=== PATIENT | female | born 1980 | race Caucasian/White ===

== ENCOUNTER 2017-01-04 14:25 | Outpatient (CLI) | payer OTHER ==
--- NOTE | 2017-01-04 22:16 | MRI Report ---
EXAM: MRI LUMBAR SPINE WITHOUT CONTRAST EXAM DATE: 01/04/2017 04:17 PM. CLINICAL HISTORY: Low back pain. COMPARISON: None. TECHNIQUE: Multiplanar, multisequence T1-weighted and fluid-sensitive sequences of the lumbar spine f rom T12 to S1 without contrast. Other: None. FINDINGS: The images are degraded by motion. There is straightening of the normal lumbar lordosis. There is a mild decrease in the height of the disk with desiccation at L3-L4 and L4-L5. The conus terminates at L1-L2 and is normal. The bone marrow signal intensities are normal. There is a mild degree of dependent edema in the superficial space of the lower back. There are multiple disk bulges or disk osteophyte complexes which will be described in greater detail below. The abdominal aorta is of normal caliber. There is no significant atrophy of the paraspinal musculatu re or psoas musculature. The kidneys are without evidence of hydronephrosis. L1-L2: There is no significant disk bulge, central or foraminal stenosis. The facets are normal. L2-L3: There is no significant disk bulge, central or foraminal stenosis. The facets are normal. L3-L4: There is a broad-based disk bulge with superimposed central extrusion of the disk with annular tear producing a mild central canal stenosis. The facets are normal. There is mild neural foraminal narrowing bilaterally. L4-L5: There is a broad-based disk bulge with annular tear abutting the sac producing a mild central canal stenosis. The facets are normal. There is mild right and left neural foraminal narrowing. L5-S1: There is no significant disk bulge, central or foraminal stenosis. The facets are normal. IMPRESSION: 1. There is a broad-based disk bulge with superimposed central extrusion of the disk at L3-L4 with an nular tear producing a mild central canal stenosis. 2. There is a broad-based disk bulge with annular tear at L4-L5 abutting the sac producing a mild teddy tral canal stenosis. Comment: The following findings are so common in adults without low back pain that while we report th eir presence, they must be interpreted with caution and in the context of the clinical situation. (Re anna Martinez et al, Spine 2001) Prevalence of findings in patients without low back pain: Disk degeneration (any evidence): 92% Disk desiccation/T2 signal loss: 83% Disk height loss: 56% Disk bulge: 64% Disk protrusion: 32% Annular tear/high intensity zone: 38% [facility] Referring Provider Line: [phone] SITE ID: [id number]
== END 2017-01-04 14:26 | disposition home or self-care (01) ==
LOC: DI 14:25
DX: M51.26 Other intervertebral disc displacement, lumbar region (principal); M51.36 Other intervertebral disc degeneration, lumbar region
CPT/HCPCS: 72148

== ENCOUNTER 2020-05-25 23:52 | Emergency (ER) | payer OTHER ==
[2020-05-26 00:27] LABS: BILIRUBIN,URINE NEGATIVE (NEGATIVE); CLARITY,URINE CLEAR (CLEAR); GLUCOSE, URINE (UA) NEGATIVE (NEGATIVE); KETONES,URINE (UA) NEGATIVE (NEGATIVE); LEUKOCYTE ESTERASE, URINE SMALL (NEGATIVE); NITRITE,URINE NEGATIVE (NEGATIVE); OCCULT BLOOD,URINE NEGATIVE (NEGATIVE); PROTEIN,URINE NEGATIVE (NEGATIVE); UROBILINOGEN,URINE 0.2 (NORMAL) E.U./dL (NORMAL)
[2020-05-26 00:28] LABS: HCG UR QUAL NEGATIVE
[2020-05-26 00:32] LABS: BACTERIA,URINE Rare /HPF (None Seen); RBC,URINE None Seen /HPF (0-5); SQUAMOUS EPITHELIAL CELL,UR MANY Squamous (<= Few)
[2020-05-26] MEDS ORDERED: SULFAMETH/TRIMETH DS 800/160 MG TABLET PO STA (00:48)
--- NOTE | 2020-05-26 01:10 | ED Physician Documentation ---
History of Present Illness - Stated complaint Stated Complaint: F - Chief complaint Chief Complaint: UTI - History obtained from History obtained from: Patient - Additonal information Additional information: Patient comes emergency department with chief complaint of back pain, nausea, and suprapubic pain, in addition to frequency. Patient states she has a history of recurrent UTIs previously, and this feels the same. No fevers or chills. Patient states she does not get dysuria anymore. No vaginal symptoms. No other complaints at this time. Review of Systems Ten Systems: 10 systems reviewed and negative Constitutional: reports: Reviewed and negative Eyes: reports: Reviewed and negative Ears: reports: Reviewed and negative Nose: reports: Reviewed and negative Throat: reports: Reviewed and negative Cardiac: reports: Reviewed and negative Respiratory: reports: Reviewed and negative GI: reports: Abdominal Pain, Nausea. denies: Vomiting : reports: Reviewed and negative Skin: reports: Reviewed and negative Musculoskeletal: reports: Reviewed and negative Neurologic: reports: Reviewed and negative Psychiatric: reports: Reviewed and negative Endocrine: reports: Reviewed and negative Immunocompromised: reports: Reviewed and negative PD PAST MEDICAL HISTORY - Past Medical History Cardiovascular: Hypertension Respiratory: None Endocrine/Autoimmune: None GI: GERD : None HEENT: None Psych: Depression, Anxiety, Other Musculoskeletal: Other Derm: None - Past Surgical History Past Surgical History: Yes General: Cholecystectomy 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 - Present Medications Home Medications: Ambulatory Orders Medication Instructions Recorded Confirmed Butalbital/Aspirin/Caffeine 1 cap PO ONCE PRN 08/16/14 06/10/15 [Fiorinal 50-325-40 mg Capsule] Promethazine [Phenergan] 25 mg PO ONCE PRN 08/16/14 06/10/15 Tizanidine HCl [Zanaflex] 4 mg PO BID 08/16/14 06/10/15 Bupropion HCl [Bupropion HCl Sr] 300 mg PO DAILY 06/10/15 06/10/15 Montelukast Sodium [Singulair] 10 mg PO DAILY 06/10/15 06/10/15 Metoprolol Tartrate 100 mg PO BID 06/11/15 06/11/15 Codeine/Butalbital/ASA/Caffein 1 PRN 08/13/15 [Fiorinal-Cod 33-59-543-40 Cap] Sulfamethox/Trimeth 800/160 1 each PO BID #14 tablet 05/26/20 [Bactrim Ds 800/160] - Allergies Allergies/Adverse Reactions: Allergies Allergy/AdvReac Type Severity Reaction Status Date / Time hydrocodone bitartrate * Allergy Itching Verified 05/25/20 23:54 [From [place]] oxycodone HCl * Allergy Hives Verified 05/25/20 23:54 [From Percocet] amoxicillin trihydrate * AdvReac Nausea Verified 05/25/20 23:54 [From Augmentin] potassium clavulanate * AdvReac Nausea Verified 05/25/20 23:54 [From Augmentin] - Social History Does the pt smoke?: No Smoking Status: Never smoker Does the pt drink ETOH?: No Does the pt have substance abuse?: No - Immunizations Immunizations are current?: Yes PD ED PE NORMAL - Vitals Vital signs reviewed: Yes - General General: Alert and oriented X 3, No acute distress - HEENT HEENT: Atraumatic, PERRL, EOMI, Moist mucous membranes - Neck Neck: Supple, no meningeal sign - Cardiac Cardiac: RRR, No murmur - Respiratory Respiratory: No respiratory distress, Clear bilaterally - Abdomen Abdomen: Soft, Non distended, Other (Mild tenderness suprapubic area.) - Derm Derm: Warm and dry - Extremities Extremities: No deformity - Neuro Neuro: Alert and oriented X 3 - Psych Psych: Normal mood, Normal affect Results - Vitals Vitals: Vital Signs - 24 hr 05/25/20 05/26/20 23:54 01:19 Temperature 36.5 C 36.8 C Heart Rate 94 81 Respiratory 14 18 Rate Blood Pressure 150/100 H 140/98 H O2 Saturation 100 100 Oxygen O2 Source Room air - Labs Labs: Laboratory Tests 05/26/20 00:23 Urine Color YELLOW Urine Clarity CLEAR Urine pH 7.0 Ur Specific [place] 1.020 Urine Protein NEGATIVE Urine Glucose (UA) NEGATIVE Urine Ketones NEGATIVE Urine Occult Blood NEGATIVE Urine Nitrite NEGATIVE Urine Bilirubin NEGATIVE Urine Urobilinogen 0.2 (NORMAL) Ur Leukocyte Esterase SMALL H Urine RBC None Seen Urine WBC 0-3 Ur Squamous Epith Cells MANY Squamous H Urine Bacteria Rare Ur Microscopic Review INDICATED Urine Culture Comments NOT INDICATED Urine HCG, Qual NEGATIVE PD MEDICAL DECISION MAKING - ED course Complexity details: reviewed results, re-evaluated patient, considered differential, d/w patient ED course: The patient had a somewhat contaminated urine sample, but given her history, I decided to treat the findings as a UTI. Patient was started on Bactrim. She had taken oral Phenergan at home prior to coming in, and her nausea had improved. We have discussed home management of the symptoms, as well as the usual indications for return. Departure - Departure Disposition: Home, Self Care Clinical Impression: Urinary tract infection Qualifiers: Urinary tract infection type: acute cystitis Hematuria presence: without hematuria Qualified Code(s): N30.00 - Acute cystitis without hematuria Condition: Stable Instructions: ED UTI Cystitis Female Prescriptions: Sulfamethox/Trimeth 800/160 [Bactrim Ds 800/160] 1 each PO BID #14 tablet Discharge Date/Time: 05/26/20 01:20
[2020-05-26 01:20] VITALS: BP 140/98
== END 2020-05-26 01:20 | disposition home or self-care (01) ==
LOC: ED 23:52
DX: N30.00 Acute cystitis without hematuria (principal); I10 Essential (primary) hypertension
CPT/HCPCS: 81001; 81025; 99283; A9270; 81003; 87086

== ENCOUNTER 2020-11-20 17:50 | Emergency (ER) | payer OTHER ==
--- NOTE | 2020-11-20 19:09 | XRAY Report ---
PROCEDURE: Foot 3 View RT INDICATIONS: Trauma TECHNIQUE: 3 views of the foot were acquired. COMPARISON: None FINDINGS: Bones: No fractures or dislocations. No suspicious bony lesions. First MTP fixation is present. Tineo rdware is intact without evidence of hardware fracture or periprosthetic loosening to suggest looseni ng. Heterotopic bone/osteophyte formation is noted proximally. Soft tissues: No tibiotalar joint effusion. Achilles tendon appears normal. IMPRESSION: No visualized acute fracture or dislocation. However, occult injury cannot be excluded. Recommend brandyn rt interval imaging follow-up in 7-10 days as clinically indicated for additional evaluation. Reviewed by: Jordana Smith MD on 11/20/2020 7:08 PM PDT Approved by: Jordana Smith MD on 11/20/2020 7:08 PM PDT Station ID: [id number]
--- NOTE | 2020-11-20 21:15 | ED Physician Documentation ---
History of Present Illness - Stated complaint Stated Complaint: RT BIG TOE INJ - Chief complaint Chief Complaint: Ext Problem - Additonal information Additional information: 39-year-old female presents the emergency department for evaluation of Right great toe pain. She accidentally stubbed it 2 days ago and now has swelling of the toe on the bottom of the foot. She did have a bunion corrected in 2019 and is concerned that the hardware may not be in correct position. Review of Systems Constitutional: reports: Reviewed and negative Eyes: reports: Reviewed and negative Ears: reports: Reviewed and negative Nose: reports: Reviewed and negative Throat: reports: Reviewed and negative Cardiac: reports: Reviewed and negative Respiratory: reports: Reviewed and negative Musculoskeletal: reports: Extremity pain (Right foot) PD PAST MEDICAL HISTORY - Past Medical History Past Medical History: Yes Cardiovascular: Hypertension Respiratory: None Endocrine/Autoimmune: None GI: GERD : None HEENT: None Psych: Depression, Anxiety, Other Musculoskeletal: Other Derm: None - Past Surgical History Past Surgical History: Yes General: Cholecystectomy 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 - Present Medications Home Medications: Ambulatory Orders Medication Instructions Recorded Confirmed Butalbital/Aspirin/Caffeine 1 cap PO ONCE PRN 08/16/14 06/10/15 [Fiorinal 50-325-40 mg Capsule] Promethazine [Phenergan] 25 mg PO ONCE PRN 08/16/14 06/10/15 Tizanidine HCl [Zanaflex] 4 mg PO BID 08/16/14 06/10/15 Bupropion HCl [Bupropion HCl Sr] 300 mg PO DAILY 06/10/15 06/10/15 Montelukast Sodium [Singulair] 10 mg PO DAILY 06/10/15 06/10/15 Metoprolol Tartrate 100 mg PO BID 06/11/15 06/11/15 Codeine/Butalbital/ASA/Caffein 1 PRN 08/13/15 [Fiorinal-Cod 45-92-099-40 Cap] Sulfamethox/Trimeth 800/160 1 each PO BID #14 tablet 05/26/20 [Bactrim Ds 800/160] - Allergies Allergies/Adverse Reactions: Allergies Allergy/AdvReac Type Severity Reaction Status Date / Time hydrocodone bitartrate * Allergy Itching Verified 11/20/20 18:06 [From [place]] oxycodone HCl * Allergy Hives Verified 11/20/20 18:06 [From Percocet] amoxicillin trihydrate * AdvReac Nausea Verified 11/20/20 18:06 [From Augmentin] potassium clavulanate * AdvReac Nausea Verified 11/20/20 18:06 [From Augmentin] - Social History Does the pt smoke?: No Smoking Status: Never smoker Does the pt drink ETOH?: No Does the pt have substance abuse?: No - Immunizations Immunizations are current?: Yes - POLST Patient has POLST: No PD ED PE EXPANDED - Extremities Extremities: Right foot (Swelling and tenderness on the sole of the right great toe. Mild ecchymosis. 2+ DP pulse. Normal gait.) Results - Vitals Vitals: Vital Signs - 24 hr 11/20/20 18:06 Temperature 36.5 C Heart Rate 80 Respiratory 16 Rate Blood Pressure 147/88 H O2 Saturation 99 Oxygen O2 Source Room air - Rads (name of study) right foot Radiology: Final report received (No fracture. Hardware in place.) PD MEDICAL DECISION MAKING - ED course Complexity details: reviewed results, d/w patient ED course: 39-year-old female presents emergency department for right great toe pain following a stubbing incident 2 days ago. Does have a history of previous repair to this toe secondary to a bunion. There is some ecchymosis consistent with contusion but x-ray negative for fracture. Routine care emergent return precautions were discussed. Departure - Departure Disposition: 01 Home, Self Care Clinical Impression: Contusion of toe of right foot Qualifiers: Encounter type: initial encounter Toe: great toe Damage to nail status: without damage Qualified Code(s): S90.111A - Contusion of right great toe without damage to nail, initial encounter Condition: Stable Record reviewed to determine appropriate education?: Yes Instructions: ED Contusion Lower Extr Ch Comments: Doretha the x-ray of your foot does not show any broken bones. The hardware placed after your surgery is in appropriate position. You have a contusion or bruise of the toe. This may take 7 to 10 days to resolve. I recommend that you ice the foot, take Tylenol or ibuprofen. Return to the ER for any worsening symptoms
[2020-11-20 21:25] VITALS: BP 142/80
== END 2020-11-20 21:24 | disposition home or self-care (01) ==
LOC: ED 17:50
DX: S90.111A Contusion of right great toe without damage to nail, initial encounter (principal); W22.8XXA Striking against or struck by other objects, initial encounter
CPT/HCPCS: 99281; 99283

== ENCOUNTER 2022-01-21 22:12 | Emergency (ER) | payer OTHER ==
--- NOTE | 2022-01-21 23:13 | ED Physician Documentation ---
History of Present Illness - Stated complaint Stated Complaint: FALL,THUMB PX - Chief complaint Chief Complaint: Trauma Ext - History obtained from History obtained from: Patient - Additonal information Additional information: The patient comes to the emergency department chief complaint of right hand and wrist pain after falling onto her outstretched hand onto linoleum floor after tripping. The patient was not injured in any other way. She is right-hand dominant. She states most of the pain is at the base of her first metacarpal ventrally. Review of Systems Ten Systems: 10 systems reviewed and negative Constitutional: reports: Reviewed and negative Eyes: reports: Reviewed and negative Ears: reports: Reviewed and negative Nose: reports: Reviewed and negative Throat: reports: Reviewed and negative Cardiac: reports: Reviewed and negative Respiratory: reports: Reviewed and negative GI: reports: Reviewed and negative : reports: Reviewed and negative Skin: reports: Reviewed and negative Musculoskeletal: reports: Extremity pain, Extremity swelling Neurologic: reports: Reviewed and negative Psychiatric: reports: Reviewed and negative Endocrine: reports: Reviewed and negative Immunocompromised: reports: Reviewed and negative PD PAST MEDICAL HISTORY - Past Medical History Cardiovascular: Hypertension Respiratory: None Endocrine/Autoimmune: None GI: GERD : None HEENT: None Psych: Depression, Anxiety, Other Musculoskeletal: Other Derm: None - Past Surgical History Past Surgical History: Yes General: Cholecystectomy 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 - Present Medications Home Medications: Ambulatory Orders Medication Instructions Recorded Confirmed Butalbital/Aspirin/Caffeine 1 cap PO ONCE PRN 08/16/14 06/10/15 [Fiorinal 50-325-40 mg Capsule] Promethazine [Phenergan] 25 mg PO ONCE PRN 08/16/14 06/10/15 Tizanidine HCl [Zanaflex] 4 mg PO BID 08/16/14 06/10/15 Bupropion HCl [Bupropion HCl Sr] 300 mg PO DAILY 06/10/15 06/10/15 Montelukast Sodium [Singulair] 10 mg PO DAILY 06/10/15 06/10/15 Metoprolol Tartrate 100 mg PO BID 06/11/15 06/11/15 Codeine/Butalbital/ASA/Caffein 1 PRN 08/13/15 [Fiorinal-Cod 00-74-385-40 Cap] Sulfamethox/Trimeth 800/160 1 each PO BID #14 tablet 05/26/20 [Bactrim Ds 800/160] - Allergies Allergies/Adverse Reactions: Allergies Allergy/AdvReac Type Severity Reaction Status Date / Time hydrocodone bitartrate * Allergy Itching Verified 01/21/22 22:18 [From [place]] oxycodone HCl * Allergy Hives Verified 01/21/22 22:18 [From Percocet] amoxicillin trihydrate * AdvReac Nausea Verified 01/21/22 22:18 [From Augmentin] potassium clavulanate * AdvReac Nausea Verified 01/21/22 22:18 [From Augmentin] - Social History Does the pt smoke?: No Smoking Status: Never smoker Does the pt drink ETOH?: No Does the pt have substance abuse?: No - Immunizations Immunizations are current?: Yes - POLST Patient has POLST: No PD ED PE NORMAL - Vitals Vital signs reviewed: Yes - General General: Alert and oriented X 3, No acute distress, Well developed/nourished - HEENT HEENT: Atraumatic, PERRL, EOMI, Moist mucous membranes - Neck Neck: Supple, no meningeal sign - Cardiac Cardiac: Strong equal pulses - Respiratory Respiratory: No respiratory distress - Derm Derm: Normal color, Warm and dry, No rash - Extremities Extremities: No deformity, Other (Mild edema over base of right first metacarpal ventrally. Moderate point tenderness in the same area. No deformity. No point tenderness elsewhere. Full range of motion of wrist though ulnar deviation increases pain. 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 However, she can make the motion.), No sensory deficit, Normal speech - Psych Psych: Normal mood, Normal affect Results - Vitals Vitals: Vital Signs - 24 hr 01/21/22 01/22/22 22:18 00:22 Temperature 36.5 C 36 C L Heart Rate 80 80 Respiratory 16 16 Rate Blood Pressure 150/90 H 147/86 H O2 Saturation 100 98 Oxygen O2 Source Room air - Rads (name of study) X-ray right wrist Radiology: Final report received, EMP read indepedently, See rad report (Negative) X-ray right fingers Radiology: Final report received, EMP read indepedently, See rad report (Negative) PD MEDICAL DECISION MAKING - ED course Complexity details: reviewed results, re-evaluated patient, considered differential, d/w patient ED course: The patient was worked up with x-rays of her thumb and wrist, all of which were negative. We have discussed home management of symptoms, as well as usual indications for return. Departure - Departure Disposition: 01 Home, Self Care Clinical Impression: Hand contusion Qualifiers: Encounter type: initial encounter Laterality: right Qualified Code(s): S60.221A - Contusion of right hand, initial encounter Wrist contusion Qualifiers: Encounter type: initial encounter Laterality: right Qualified Code(s): S60.211A - Contusion of right wrist, initial encounter Condition: Stable Instructions: ED Contusion Hand Comments: Your x-rays look good. They have been read as by the radiologist, and most likely, you have sustained a bruise to the soft tissues overlying your wrist and the base of your thumb. You may apply ice and use ibuprofen and Tylenol if needed. You may use the wrist as much or as little as you feel comfortable doing. Forms: Activity restrictions Discharge Date/Time: 01/22/22 00:22
--- NOTE | 2022-01-21 23:48 | XRAY Report ---
PROCEDURE: Finger(s) RT INDICATIONS: fall/pain TECHNIQUE: AP hand, additional 3 views of the right first digit acquired. COMPARISON: None. FINDINGS: Bones: No fractures or dislocations. No suspicious bony lesions. Soft tissues: No suspicious soft tissue calcifications. IMPRESSION: 1. No fracture or dislocation. Reviewed by: Chauncey Hurst MD on 01/21/2022 11:47 PM PDT Approved by: Chauncey Hurst MD on 01/21/2022 11:47 PM PDT Station ID: [id number]
--- NOTE | 2022-01-21 23:49 | XRAY Report ---
PROCEDURE: Wrist 4 View RT INDICATIONS: fall/pain TECHNIQUE: 3 views of the wrist were acquired. COMPARISON: Concurrent study of the right first digit. FINDINGS: Bones: No fractures or dislocations. No suspicious bony lesions. Soft tissues: No suspicious soft tissue calcifications. IMPRESSION: 1. No fracture or dislocation. Reviewed by: Chauncey Hurst MD on 01/21/2022 11:47 PM PDT Approved by: Chauncey Hurst MD on 01/21/2022 11:47 PM PDT Station ID: [id number]
[2022-01-22 00:22] VITALS: BP 147/86
== END 2022-01-22 00:22 | disposition home or self-care (01) ==
LOC: ED 22:12
DX: S60.221A Contusion of right hand, initial encounter (principal); S60.211A Contusion of right wrist, initial encounter; W01.0XXA Fall on same level from slipping, tripping and stumbling without subsequent striking against object, initial encounter; I10 Essential (primary) hypertension; F32.A Depression, unspecified; F41.9 Anxiety disorder, unspecified
CPT/HCPCS: 99282; 99283

== ENCOUNTER 2022-12-22 07:13 | Outpatient (CLI) | payer OTHER ==
--- NOTE | 2022-12-22 15:10 | MRI Report ---
PROCEDURE: WRIST WO - RT INDICATIONS: RADIAL STYLOID TENOSYNOVITIS TECHNIQUE: Noncontrast coronal T1 spin echo, proton density fast spin echo, and T2 fast spin echo with fat satur ation; coronal 3-D gradient echo, axial T1 spin echo and T2 fast spin echo with fat saturation, sagit christel T1 spin echo through the wrist. COMPARISON: Right wrist radiographs 01/21/2022 FINDINGS: Image quality: Excellent. Bones and cartilage: The carpal bones are normally aligned. No bone marrow contusions or fractures. No evidence for avascular necrosis. Minimal degenerative spurring at the 1st metacarpophalangeal omaira int. Type II lunate. Carpal ligaments: The scapholunate and lunotriquetral ligaments appear intact. On sagittal images, t he pisohamate ligament appears intact. Triangular fibrocartilage complex: The triangular fibrocartilage appears intact. Tendons and soft tissues: The carpal tunnel structures appear normal, including the median nerve. T he ulnar nerve appears normal within Guyon's canal. Mild tendinosis and possible trace tenosynovitis of the extensor pollicis brevis and abductor pollicis longus tendons. There is mild to moderate exten sor carpi ulnaris tendinosis and tenosynovitis. Extensor tendon compartments demonstrate normal morph ology, without pathologic tendon sheath fluid. Lobular ganglion cyst is seen at the volar radial aspe ct of the radiocarpal joint measuring approximately 19 x 7 x 6 mm. IMPRESSION: 1.Ganglion cyst at the volar radial aspect of the radiocarpal joint adjacent to the radial styloid me asures up to 19 mm in maximum dimension. 2.Mild tendinosis and trace tenosynovitis of the extensor pollicis brevis and abductor pollicis longu s tendons within the 1st extensor compartment. 3.Mild to moderate extensor carpi ulnaris tendinosis and tenosynovitis. Reviewed by: Aramis Perry MD on 12/22/2022 3:09 PM PDT Approved by: Aramis Perry MD on 12/22/2022 3:09 PM PDT Station ID: [id number]
== END 2022-12-22 07:14 | disposition home or self-care (01) ==
LOC: DI 07:13
PROVIDERS: ATTEND Orthopaedic Surgery
DX: M67.431 Ganglion, right wrist (principal); M65.9 Synovitis and tenosynovitis, unspecified

== ENCOUNTER 2023-09-27 08:55 | Outpatient (CLI) | payer OTHER ==
--- NOTE | 2023-09-27 10:47 | MRI Report ---
Hand RT WO CLINICAL HISTORY: 42 years of age, Female, R FINGER PAIN. COMPARISON: Right wrist MRI on September 21, 2022 Technique: Multisequence, multiplanar MRI of the right hand was performed without contrast. IV CONTRAST: Not given FINDINGS: Bones and cartilage: No fracture or osseous marrow edema. Cartilage throughout the imaged extremity appears intact, without focal deficit or reactive signal change in the underlying bone. Extensor tendons: Extensor tendons and sagittal bands are intact. Flexor tendons: Flexor tendons and volar plates are intact. No tendinosis, tenosynovitis or tendon te ar. Ligaments: Ulnar and radial collateral ligaments, accessory and proper, are intact at all visualized metacarpophalangeal and interphalangeal joints. Soft tissues and miscellaneous: Previously seen ganglion cyst at the volar radial aspect of the r adiocarpal joint has resolved. Edema of the median nerve with bowing of the flexor retinaculum, raisi ng concern for carpal tunnel syndrome. Diffuse muscle edema of the abductor pollicis brevis, without fatty atrophy, nonspecific. IMPRESSION: 1.Findings suggestive of carpal tunnel syndrome. 2.Diffuse muscle edema of the abductor pollicis brevis, nonspecific. Reviewed by: Doretha Portillo MD on 09/27/2023 10:46 AM PDT Approved by: Doretha Portillo MD on 09/27/2023 10:46 AM PDT Station ID: [id number]
== END 2023-09-27 08:56 | disposition home or self-care (01) ==
LOC: DI 08:55
PROVIDERS: ATTEND Orthopaedic Surgery
DX: M79.644 Pain in right finger(s) (principal); R60.0 Localized edema

== ENCOUNTER 2023-10-26 20:49 | Emergency (ER) | payer OTHER ==
[2023-10-26 21:07] VITALS: BP 163/103; O2SAT 98
[2023-10-26] MEDS: LIDOCAINE 2%-EPI 1:100000 20 ML MDV SUBQ STA (21:14)
--- NOTE | 2023-10-26 21:51 | ED Physician Documentation ---
PD HPI LOWER EXT INJURY - Stated complaint Stated Complaint: L LEG LAC - Chief complaint Chief Complaint: Trauma Ext - Additional information Additional information: 42-year-old female presents emergency department for very small left calf la ceration measuring about 1 cm in length. Bleeding is well-controlled but it is within a tattoo and she is concerned about healing and continued oozing at home. Patient has many allergies to adhesives and was hoping to avoid glue or Steri- Strips last tetanus shot was about 2 days ago. Laceration occurred because she was mowing the lawn and a rock came from the lawnmower and hit her left calf. PD PAST MEDICAL HISTORY - Past Medical History Past Medical History: Yes Cardiovascular: Hypertension Respiratory: None Endocrine/Autoimmune: None GI: GERD : None HEENT: None Psych: Depression, Anxiety, Other Musculoskeletal: Other Derm: None - Past Surgical History Past Surgical History: Yes General: Cholecystectomy Ortho: Arthroscopic surgery /CNA PER DIEM: Other - Present Medications Home Medications: Ambulatory Orders Medication Instructions Recorded Confirmed Butalbital/Aspirin/Caffeine 1 cap PO ONCE PRN 08/16/14 06/10/15 [Fiorinal 50-325-40 mg Capsule] Promethazine [Phenergan] 25 mg PO ONCE PRN 08/16/14 06/10/15 Tizanidine HCl [Zanaflex] 4 mg PO BID 08/16/14 06/10/15 Bupropion HCl [Bupropion HCl Sr] 300 mg PO DAILY 06/10/15 06/10/15 Montelukast Sodium [Singulair] 10 mg PO DAILY 06/10/15 06/10/15 Metoprolol Tartrate 100 mg PO BID 06/11/15 06/11/15 Codeine/Butalbital/ASA/Caffein 1 PRN 08/13/15 [Fiorinal-Cod 05-48-525-40 Cap] Sulfamethox/Trimeth 800/160 1 each PO BID #14 tablet 05/26/20 [Bactrim Ds 800/160] - Allergies Allergies/Adverse Reactions: Allergies Allergy/AdvReac Type Severity Reaction Status Date / Time hydrocodone bitartrate * Allergy Itching Verified 10/26/23 20:59 [From Sulligent] oxycodone HCl * Allergy Hives Verified 10/26/23 20:59 [From Percocet] amoxicillin trihydrate * AdvReac Nausea Verified 10/26/23 20:59 [From Augmentin] potassium clavulanate * AdvReac Nausea Verified 10/26/23 20:59 [From Augmentin] - Social History Does the pt smoke?: No Smoking Status: Never smoker Does the pt drink ETOH?: No Does the pt have substance abuse?: No - Immunizations Immunizations are current?: Yes - POLST Patient has POLST: No PD ED PE NORMAL - Vitals Vital signs reviewed: Yes - General General: Alert and oriented X 3, No acute distress, Well developed/nourished - Derm Derm: Other (1 cm laceration to the left calf on the lateral aspect about 5 inches below knee) Results - Vitals Vitals: Vital Signs - 24 hr 10/26/23 20:57 Temperature 36.4 C L Heart Rate 81 Respiratory 16 Rate Blood Pressure 163/103 H O2 Saturation 98 Oxygen O2 Source Room air Procedures - Laceration (location) Left calf laceration to the lateral aspect Length in cm: 1 Wound type: Linear, Superficial, Clean Neurovascular status: Sensory intact, Vascular intact Anesthesia: Lidocaine 1% with epi Wound preparation: Irrigated copiously NS, Wound explored, To the base Skin layer closure: Nylon, Interrupted, Size #-0 - enter number (4-0), Sutures - enter # (2) Other: Patient tolerated well, No complications, Tetanus UTD PD Medical Decision Making - ED course ED course: Wound inspected under direct bright light with good visualization. Area with linear laceration across soft tissue through adipose without exposure of muscle belly. No overt foreign body. Area hemostatic. Area extensively irrigated with sterile normal saline under pressure. Laceration repaired in simple fashion (please see procedure note for further details). Patient tolerated procedure well. Cautious return precautions discussed w/ full understanding. Wound care discussed. Prompt follow up with primary care physician discussed and return for suture removal in 8-10 days. Departure - Departure Disposition: 01 Home, Self Care Clinical Impression: Leg laceration Instructions: ED Laceration Sure Close Comments: Come back for any signs of infection which would include: Redness, swelling, drainage, increased pain, or fevers. You can wash it soap and water. Keep it covered and moist with bacitracin ointment which is available over the counter; avoid neosporin. Follow-up with your physician in 8-10 days for suture removal. Forms: PCP List Discharge Date/Time: 10/26/23 21:54
== END 2023-10-26 21:54 | disposition home or self-care (01) ==
LOC: ED 20:49
DX: S81.812A Laceration without foreign body, left lower leg, initial encounter (principal); W20.8XXA Other cause of strike by thrown, projected or falling object, initial encounter; Y93.H2 Activity, gardening and landscaping; I10 Essential (primary) hypertension
CPT/HCPCS: 12001; 99283